=== PATIENT | male | born 1970 | race Caucasian/White ===

== ENCOUNTER 2017-08-18 11:36 | Emergency (ER) | payer BC ==
[~2017-08-18] VITALS: Ht 175.3 cm; Wt 90.7 kg
[2017-08-18] MEDS ORDERED: CYCLOBENZAPRINE HCL 10 MG TAB PO ONE (11:45)
[2017-08-18] MEDS ORDERED: KETOROLAC TROMETHAMINE 30 MG/ML VIAL IV STA (11:45)
[2017-08-18] MEDS ORDERED: HYDROCODONE/APAP 7.5MG-325MG 1 EA TAB PO ONE (11:45)
[2017-08-18] MEDS ORDERED: DEXAMETHASONE SOD PHOS 10 MG/1 ML VIAL IV ONE (11:45)
--- NOTE | 2017-08-18 12:43 | Diagnostic Imaging Report ---
PROCEDURE:L-SPINE COMPLETE COMPARISON:None. INDICATIONS:LOWER BACK PAIN FINDINGS: There are 5 lumbar-type vertebral bodies. The vertebral bodies are well-aligned without evidence of spondylolisthesis. Vertebral body heights are maintained. There are no fractures, lytic or blastic lesions. Mild L5-S1 degenerative changes and facet arthropathy. The sacroiliac joints are unremarkable. CONCLUSION: No acute lumbar spine abnormality. Mild L5-S1 degenerative changes and facet arthropathy. Dictated by: Ryan Soto M.D. on 08/18/2017 at 12:53 Electronically approved by: Ryan Soot M.D. on 08/18/2017 at 12:53
== END 2017-08-18 14:00 | disposition home or self-care (01) ==
LOC: ER 11:36
DX: M54.5 Low back pain (principal); M51.36 Other intervertebral disc degeneration, lumbar region; I51.9 Heart disease, unspecified
CPT/HCPCS: 72110; 99283; J1100; J1885